=== PATIENT | female | born 1940 | race Caucasian/White ===

== ENCOUNTER → 2017-12-27 | Outpatient (REF) | payer MEDICARE, MEDICAID ==
[~2017-12-27] MED LIST: ACE500 PO; ALE70 PO; AMLO2.5T74 PO; ARTO15 OP; ASPI-715 PO; BACDS PO; CALC-661 PO; CEP500 PO; CHL12L MM; CHOL100058 PO; CHOL200051 PO; CYCL1DRO6 OP; CYCOD OU; DIAZ2TAB74 PO; DIV250 PO; DIV500 PO; FURO-45 PO; LORA-799 PO; LORA10TA2 PO; MIRT-22 PO; MULT-820 PO; PHEN100 PO; POLY1DRO10 OP; RAN150 PO; SPI25 PO; SPIR25TA76 PO; TRAM100T8 PO; TUM500 PO; [UNRECOGNIZED DRUG - CODE] PO; [UNRECOGNIZED DRUG - CODE] PO
== END ==
LOC: ZZLCC 08:45
PROVIDERS: ATTEND Family Medicine
DX: G40.309 Generalized idiopathic epilepsy and epileptic syndromes, not intractable, without status epilepticus (principal)
CPT/HCPCS: 80164; 80185

== ENCOUNTER 2018-03-07 05:05 | Inpatient (IN) | payer MEDICARE, MEDICAID ==
[2018-03-07] VITALS (11 sets, daily range): BP systolic 73–142; BP diastolic 52–117
[~2018-03-07 05:05] MED LIST changes: -AMOX-559 PO; -BENZ1LOZ12 MM; -DIV500ER PO; -DOCU-416 PO; -HYDR-4309 PO; -MULT1CAP59 PO
--- NOTE | 2018-03-07 05:17 | ER Report ---
History and Physical Time Seen By MD: 05:16 Hx. of Stated Complaint: PATIENT STATES SHE STARTED HAVING PAIN ACROSS HER WHOLE ABDOMEN THAT STARTED YESTERDAY MORNING, NO BM SINCE TUESDAY. (GABRIELA BECERRIL MD) HPI/ROS CHIEF COMPLAINT: abdominal pain HISTORY OF PRESENT ILLNESS: This is a 77 year old female. She is a resident of [facility]. She has been having a couple of days of abdominal pain that she describes as being in the upper abdomen. Worsens with sitting or movement, and nothing makes it better. No bowel movement since Tuesday (4 days). No complaints of dysuria. No medications given for constipation. No fevers or chills. No shortness of breath. No chest pain. (GABRIELA BECERRIL MD) Allergies: Coded Allergies: bacitracin (Verified Allergy, Unknown, 03/07/18) polyethylene glycol 400 (Verified Allergy, Unknown, 03/07/18) propylene glycol (Verified Allergy, Unknown, 03/07/18) Home Meds Active Scripts Amoxicillin/Pot Clav 875-125 Mg Tab (AUGMENTIN 875-125 TABLET) 1 Each Tablet, 1 TAB PO Q12H, #16 TAB Prov:KENDY BUSH MD 03/08/18 Hydrocodone Bit/Acetaminophen (NORCO 5-325 TABLET) 1 Each Tablet, 1 EACH PO Q4H Y for PAIN, #20 TAB Prov:KENDY BUSH MD 03/08/18 Reported Medications Benzocaine/Menthol (CEPACOL SORE THROAT LOZENGE) 1 Each Lozenge, 1 EACH MM PRN Y for COUGH, LOZENGE 03/07/18 Divalproex Sodium (DIVALPROEX SODIUM ER) 500 Mg Tab.er.24h, 500 MG PO BID, TAB 03/07/18 Multivitamin (MULTIVITAMINS) 1 Each Capsule, 1 EACH PO DAILY, CAPSULE 03/07/18 Docusate Sodium (COLACE) 100 Mg Capsule, 100 MG PO DAILY, CAPSULE 03/07/18 Polyvinyl Alcohol/Povidone/Pf (REFRESH CLASSIC EYE DROPS) 1 Each Droperette, 2 DROP OP TID 10/29/14 Cholecalciferol (Vitamin D3) (VITAMIN D) 1,000 Unit Capsule, 2000 UNIT PO QAM, CAPSULE 10/29/14 Spironolactone (ALDACTONE) 25 Mg Tablet, 12.5 MG PO QAM 10/29/14 Phenytoin Sodium (DILANTIN (OR EQUIV)) 100 Mg Cap, 300 MG PO QHS 12/26/12 Calcium Carbonate (Tums) 500 Mg Chew, 1000 MG PO BIDBS, 0 Refills 12/26/10 Acetaminophen (Tylenol) 500 Mg Tab, 500 MG PO TID, 0 Refills 12/26/10 Chlorhexidine Gluconate (Chlorhexidine Gluconate) 473 Ml Mouthwash, 15 ML MM BIDPC, 0 Refills SWISH WITH 1 TBS (15ML) AND SPIT TWICE A DAY AFTER EATING. 12/26/10 Discontinued Reported Medications Tramadol Hcl (TRAMADOL HCL) 100 Mg Tab.er.24h, 50 MG PO QDAY Y for PAIN 10/29/14 Diazepam (DIAZEPAM) 2 Mg Tablet, 2 MG PO BID Y for MUSCLE SPASMS, TAB TAKE ONE TABLET BY MOUTH AT BEDTIME 10/29/14 Mirtazapine (MIRTAZAPINE) 15 Mg Tablet, 15 MG PO QHS 10/29/14 Cyclosporine (RESTASIS) 1 Each Droperette, 1 EACH OP BID 10/29/14 Amlodipine Besylate (AMLODIPINE BESYLATE) 2.5 Mg Tablet, 1 TAB PO QAM, #30 TAB TAKE ONE TABLET BY MOUTH EVERY DAY 10/29/14 Divalproex Sodium (DEPAKOTE DR(OR EQUIV)) 250 Mg Tab, 500 MG PO BID 12/26/12 Loratadine (Claritin) 10 Mg Tab.rapdis, 10 MG PO DAILY Y for ITCHING 12/26/12 Ranitidine Hcl (Zantac) 150 Mg Tab, 75 MG PO QAM, 0 Refills 12/26/10 Reviewed Nurses Notes: Yes (GABRIELA BECERRIL MD) Hx Smoking: No Smoking Status: Never Smoker Hx Substance Use Disorder: No Hx Alcohol Use: No (GABRIELA BECERRIL MD) Constitutional Vital Sign - Last 24 Hours 03/07/18 03/07/18 03/07/18 03/07/18 05:10 05:20 05:30 05:35 Temp 99.3 Pulse 96 89 90 Resp 24 B/P (MAP) 168/76 137/91 (106) Pulse Ox 90 87 89 O2 Delivery Room Air 03/07/18 03/07/18 03/07/18 05:50 06:05 06:20 Pulse 89 ??? 86 Pulse Ox 88 90 88 Intake and Output 03/07/18 03/07/18 03/08/18 15:00 23:00 07:00 Intake Total 1000 ml Output Total 40 ml Balance 960 ml (YURIY TAI MD) Physical Exam General Appearance: The patient is alert. No acute distress. Eyes: Pupils are equal, round. No pallor, injection or icterus. ENT: Mucous membranes are moist. Normal oral mucosa. Neck: Supple and non tender. Respiratory: Lungs are clear to auscultation. Cardiovascular: Regular rate and rhythm. Has a 3/6 systolic murmur. Gastrointestinal: Abdomen is soft, upper abdominal discomfort across the whole upper abdomen. Distended, mild. No rebound or guarding. Hypoactive bowel sounds. Neurological: Alert and oriented x3. Cerebal palsy. Skin: Warm and dry. No rashes. DIFFERENTIAL DIAGNOSIS: After history and physical exam, differential diagnosis was considered for abdominal pain including but not limited to constipation, bowel obstruction, gastroenteritis, colitis and urinary tract infection. ([facility]) Medical Decision Making Data Points Result Diagram: 03/07/18 0700 03/07/18 0700 Laboratory Hematology Test 03/07/18 07:00 03/07/18 07:06 Red Blood Count 4.54 M/uL (4.17-5.56) Mean Corpuscular Volume 92.7 fL (80.0-96.0) Mean Corpuscular Hemoglobin 32.6 pg (26.0-33.0) Mean Corpuscular Hemoglobin Concent 35.1 g/dL (32.0-36.0) Red Cell Distribution Width 14.7 % (11.5-14.5) Mean Platelet Volume 9.7 fL (7.2-11.1) Neutrophils (%) (Auto) 82.6 % (39.4-72.5) Lymphocytes (%) (Auto) 5.4 % (17.6-49.6) Monocytes (%) (Auto) 11.7 % (4.1-12.4) Eosinophils (%) (Auto) 0.0 % (0.4-6.7) Basophils (%) (Auto) 0.3 % (0.3-1.4) Nucleated RBC Relative Count (auto) 0.0 /100WBC Neutrophils # (Auto) 11.6 K/uL (2.0-7.4) Lymphocytes # (Auto) 0.8 K/uL (1.3-3.6) Monocytes # (Auto) 1.7 K/uL (0.3-1.0) Eosinophils # (Auto) 0.0 K/uL (0.0-0.5) Basophils # (Auto) 0.0 K/uL (0.0-0.1) Nucleated RBC Absolute Count (auto) 0.00 K/uL Sodium Level 136 mmol/L (137-145) Potassium Level 3.9 mmol/L (3.5-5.0) Chloride Level 102 mmol/L (98-107) Carbon Dioxide Level 26 mmol/L (22-31) Blood Urea Nitrogen 24 mg/dl (7-18) Creatinine 0.50 mg/dl (0.52-1.04) Glomerular Filtration Rate Calc > 60.0 Random Glucose 98 mg/dl (75-110) Calcium Level 8.6 mg/dl (8.4-10.2) Total Bilirubin 0.8 mg/dl (0.2-1.3) Aspartate Amino Transf (AST/SGOT) 27 U/L (0-35) Alanine Aminotransferase (ALT/SGPT) 24 U/L (0-56) Alkaline Phosphatase 72 U/L (0-126) Total Protein 6.7 gm/dl (6.3-8.2) Albumin 2.9 g/dl (3.5-5.0) Amylase Level 41 U/L (0-110) Lipase 55 U/L (23-300) Urine Color Yellow Urine Clarity Slightly-cloudy Urine pH 6.0 pH (4.8-9.5) Urine Specific [place] 1.024 Urine Protein Negative mg/dL (NEGATIVE) Urine Glucose (UA) Negative mg/dL (NEGATIVE) Urine Ketones Negative mg/dL (NEGATIVE) Urine Blood Negative (NEGATIVE) Urine Nitrite Negative (NEGATIVE) Urine Bilirubin Negative (NEGATIVE) Urine Urobilinogen Negative mg/dL (0.2-1.9) Urine Leukocyte Esterase Large (NEGATIVE) Urine RBC 8 /HPF (0-2/HPF) Urine WBC 343 /HPF (0-5/HPF) Urine Squamous Epithelial Cells Moderate /LPF (NONE-FEW) Urine Transitional Epithelial Cells Many /LPF (NONE-FEW) Urine Bacteria Negative /HPF (NONE-FEW) Urine Mucus None /HPF (NONE-FEW) Chemistry Test 03/07/18 07:00 03/07/18 07:06 White Blood Count 14.1 k/uL (4.5-11.0) Red Blood Count 4.54 M/uL (4.17-5.56) Hemoglobin 14.8 g/dL (12.0-16.0) Hematocrit 42.1 % (34.0-47.0) Mean Corpuscular Volume 92.7 fL (80.0-96.0) Mean Corpuscular Hemoglobin 32.6 pg (26.0-33.0) Mean Corpuscular Hemoglobin Concent 35.1 g/dL (32.0-36.0) Red Cell Distribution Width 14.7 % (11.5-14.5) Platelet Count 146 K/uL (150-450) Mean Platelet Volume 9.7 fL (7.2-11.1) Neutrophils (%) (Auto) 82.6 % (39.4-72.5) Lymphocytes (%) (Auto) 5.4 % (17.6-49.6) Monocytes (%) (Auto) 11.7 % (4.1-12.4) Eosinophils (%) (Auto) 0.0 % (0.4-6.7) Basophils (%) (Auto) 0.3 % (0.3-1.4) Nucleated RBC Relative Count (auto) 0.0 /100WBC Neutrophils # (Auto) 11.6 K/uL (2.0-7.4) Lymphocytes # (Auto) 0.8 K/uL (1.3-3.6) Monocytes # (Auto) 1.7 K/uL (0.3-1.0) Eosinophils # (Auto) 0.0 K/uL (0.0-0.5) Basophils # (Auto) 0.0 K/uL (0.0-0.1) Nucleated RBC Absolute Count (auto) 0.00 K/uL Glomerular Filtration Rate Calc > 60.0 Calcium Level 8.6 mg/dl (8.4-10.2) Total Bilirubin 0.8 mg/dl (0.2-1.3) Aspartate Amino Transf (AST/SGOT) 27 U/L (0-35) Alanine Aminotransferase (ALT/SGPT) 24 U/L (0-56) Alkaline Phosphatase 72 U/L (0-126) Total Protein 6.7 gm/dl (6.3-8.2) Albumin 2.9 g/dl (3.5-5.0) Amylase Level 41 U/L (0-110) Lipase 55 U/L (23-300) Urine Color Yellow Urine Clarity Slightly-cloudy Urine pH 6.0 pH (4.8-9.5) Urine Specific [place] 1.024 Urine Protein Negative mg/dL (NEGATIVE) Urine Glucose (UA) Negative mg/dL (NEGATIVE) Urine Ketones Negative mg/dL (NEGATIVE) Urine Blood Negative (NEGATIVE) Urine Nitrite Negative (NEGATIVE) Urine Bilirubin Negative (NEGATIVE) Urine Urobilinogen Negative mg/dL (0.2-1.9) Urine Leukocyte Esterase Large (NEGATIVE) Urine RBC 8 /HPF (0-2/HPF) Urine WBC 343 /HPF (0-5/HPF) Urine Squamous Epithelial Cells Moderate /LPF (NONE-FEW) Urine Transitional Epithelial Cells Many /LPF (NONE-FEW) Urine Bacteria Negative /HPF (NONE-FEW) Urine Mucus None /HPF (NONE-FEW) Urinalysis Test 03/07/18 07:06 Urine Color Yellow Urine Clarity Slightly-cloudy Urine pH 6.0 pH (4.8-9.5) Urine Specific [place] 1.024 Urine Protein Negative mg/dL (NEGATIVE) Urine Glucose (UA) Negative mg/dL (NEGATIVE) Urine Ketones Negative mg/dL (NEGATIVE) Urine Blood Negative (NEGATIVE) Urine Nitrite Negative (NEGATIVE) Urine Bilirubin Negative (NEGATIVE) Urine Urobilinogen Negative mg/dL (0.2-1.9) Urine Leukocyte Esterase Large (NEGATIVE) Urine RBC 8 /HPF (0-2/HPF) Urine WBC 343 /HPF (0-5/HPF) Urine Squamous Epithelial Cells Moderate /LPF (NONE-FEW) Urine Transitional Epithelial Cells Many /LPF (NONE-FEW) Urine Bacteria Negative /HPF (NONE-FEW) Urine Mucus None /HPF (NONE-FEW) (YURIY TAI MD) EKG/Imaging Imaging FACILITY: [facility] [place] PATIENT NAME: Lyndsey Valverde : 1940 MR: [id number] V: [id number] EXAM DATE: ORDERING PHYSICIAN: YURIY TAI TECHNOLOGIST: Location: [facility] [place] Patient: Lyndsey Valverde : 1940 Visit/Account:[id number] Date of Sevice: 03/07/2018 Computed tomograpy abdomen and pelvis with IV contrast Indication: Abdominal pain. Comparison: None available. Technique: Transaxial computed tomography images were obtained through the abdomen and pelvis following the injection of nonionic iodinated intravenous contrast. Reformatted coronal and sagittal images were also obtained. One of the following dose optimization techniques was utilized in the performance of this exam: Automated exposure control; adjustment of the mA and/ or kV according to the patient's size; or use of an iterative reconstruction technique. Specific details can be referenced in the facility's radiology CT exam operational policy. Contrast: 75 ml of Isovue-370 IV contrast. Findings: Lower lung lozano: There is a intermediate to large hernia. This contains a large portion of the stomach as well as surrounding fat. There is associated atelectasis involving the adjacent lower lobes. Calcifications are seen within the lower lobes likely related to old granulomatous disease. Linear density seen within the left chest wall musculature may be related to postoperative change. Liver: Mild fatty liver. Biliary: Gallbladder is absent. There is mild extrahepatic biliary dilatation. The common duct tapers distally in the pancreas. This may be sequela of the prior cholecystectomy. Pancreas: Normal appearance. Spleen: Normal appearance. Adrenal glands: Small left adrenal gland nodule seen at the junction of the anterior lateral limbs measures 1.1 cm in size. This is indeterminant. Right adrenal gland is normal. Kidneys / retroperitoneum: Several too small to characterize low-attenuation lesions are seen involving the right kidney. Statistically, these represent small cysts. No stones or hydronephrosis. No evidence for obstructive uropathy. Bowel / peritoneum / mesenteries: The appendix is abnormally dilated within the right pelvis. It is thick walled and there is abnormal surrounding inflammatory change. Findings are consistent with acute appendicitis. A partially calcified appendicolith is seen at the base of the appendix. No evidence of extraluminal gas or abscess formation. There is some fluid seen along the right paracolic gutter. Scarring is suspected within the retroperitoneum along the paracolic gutter. Comparison with old studies and with history is recommended. There is diffuse colonic diverticulosis. No evidence of diverticulitis. No evidence of free intraperitoneal air. Lymph node assessment: No pathologic adenopathy identified. Pelvic structures: No free pelvic fluid. There is bladder wall thickening with mucosal enhancement. Underlying cystitis cannot be excluded. Correlate with urinalysis. Vessels: Scattered atherosclerotic calcifications seen throughout a nonaneurysmal abdominal aorta and branches. Musculoskeletal / Body wall: Multilevel degenerative changes involve the spine. Compression deformities seen at L2 and L1 with a mild kyphosis at this level. These are age indeterminate and may be chronic. Diffuse osteopenia is suggested. There is fairly extensive muscle atrophy involving the pelvic musculature. Correlate clinically. Postoperative changes involve the low lumbar spine. IMPRESSION: 1. CT findings compatible with acute appendicitis with surrounding inflammatory stranding with a small amount of fluid tracking into the right paracolic gutter. No evidence of extraluminal gas or abscess formation. In a patient this age, a cecal mass must be included in the differential for acute appendicitis. 2. Colonic diverticulosis. No evidence of diverticulitis. 3. Intermediate to large hiatal hernia with associated atelectasis involving the lower lobes. 4. Bladder wall hickening with mucosal enhancement suspicious for an underlying cystitis. Correlation necessary with urinalysis. 5. Muscle atrophy of the pelvic musculature.6. Indeterminate 1.1 cm left adrenal gland nodule. Are there any old studies for comparison? Results were discussed with YURIY TAI at 03/07/2018 8:40 AM. Report Dictated By: Soren Lopez at 03/07/2018 8:21 AM Report E-Signed By: Soren Lopez at 03/07/2018 8:41 AM WSN:[id number] (YURIY TAI MD) ED Course/Re-evaluation Clinical Indication for ER IV: Hydration, IV Access ([facility]) ED Course 03/07/2018 8:56:34 am I spoke with Ladonna who is the patient's sister and power of assistant county attorney. She is aware that the patient has appendicitis. Agrees with current disposition to admit to the hospital and have surgery. Decision to Disposition Date: Mar 07, 2018 Decision to Disposition Time: 08:54 (YURIY TAI MD) Depart Departure Latest Vital Signs Vital Signs Date Time Temp Pulse Resp B/P (MAP) Pulse Ox O2 Delivery O2 Flow Rate FiO2 03/07/18 06:20 86 88 03/07/18 05:30 137/91 (106) 03/07/18 05:10 99.3 24 Room Air (YURIY TAI MD) Impression: Primary Impression: Acute appendicitis Additional Impression: Urinary tract infection Condition: Improved Disposition: Admitted from ER (to Dr Bush) Referrals: DYANA RUSHING MD (PCP) New Scripts Amoxicillin/Pot Clav 875-125 Mg Tab (AUGMENTIN 875-125 TABLET) 1 Each Tablet 1 TAB PO Q12H, #16 TAB Prov: KENDY BUSH MD 03/08/18 Hydrocodone Bit/Acetaminophen (NORCO 5-325 TABLET) 1 Each Tablet 1 EACH PO Q4H Y for PAIN, #20 TAB Prov: KENDY BUSH MD 03/08/18 Problem Qualifiers Primary Impression: Acute appendicitis Acute appendicitis type: with localized peritonitis Qualified Codes: K35.3 - Acute appendicitis with localized peritonitis Additional Impression: Urinary tract infection Urinary tract infection type: acute cystitis Hematuria presence: without hematuria Qualified Codes: N30.00 - Acute cystitis without hematuria GABRIELA BECERRIL MD Mar 07, 2018 05:17 YURIY TAI MD Mar 07, 2018 08:57
[2018-03-07] MEDS ORDERED: NS(*) 0.9% 1000 ML BAG 1,000 ML IV ONE (05:25)
[2018-03-07] MEDS ORDERED: ONDANSETRON 4 MG/2 ML VIAL IVP ONE (05:25)
--- NOTE | 2018-03-07 06:46 | RADIOLOGY IMAGING REPORT ---
FACILITY: [facility] PATIENT NAME: Lyndsey Valverde : 1940 MR: [id number] V: [id number] EXAM DATE: ORDERING PHYSICIAN: GABRIELA BECERRIL TECHNOLOGIST: Location: [facility] [place] Patient: Lyndsey Valverde : 1940 Visit/Account:[id number] Date of Sevice: 03/07/2018 ACUTE ABDOMEN SERIES 3 VIEW HISTORY: Lower abdominal pain. COMPARISON: Chest x-ray 10/29/2014 and 12/26/2012. No previous abdominal imaging. TECHNIQUE: AP semiupright view of the chest and AP supine and AP semi-upright views of the abdomen. Chest: There is mild bibasilar atelectasis. There is a large hiatal hernia, unchanged. No pneumothora x or pleural effusion. The cardiac and mediastinal silhouettes are within normal limits. There is deg enerative change of the glenohumeral joints, and there is spurring of the bilateral humeral heads. Abdomen: The distribution of bowel gas is normal, with bowel in all four quadrants as well as central ly. No free air. No dilated loops of bowel. There is moderate to severe degenerative change of the sp ine. There are concave deformities of the superior and inferior endplates of L1, of the superior endp late of T12, and of the superior endplate of L2. There are pelvic phleboliths. IMPRESSION: 1. Mild bibasilar atelectasis. 2. Unremarkable bowel gas pattern without obstruction. 3. Large hiatal hernia. Report Dictated By: Sruthi Wolfe at 03/07/2018 6:38 AM Report E-Signed By: Sruthi Wolfe at 03/07/2018 6:42 AM WSN:[id number]
[2018-03-07 07:16] LABS: PLATELET COUNT, AUTOMATED 146 K/uL (150-450)
[2018-03-07] MEDS ORDERED: IOPAMIDOL 76% 75 ML INFUS BTL 0 ML ONE (07:50)
[2018-03-07] MEDS ORDERED: IOPAMIDOL 76% 75 ML INFUS BTL 75 ML ONE (07:55)
[2018-03-07] MEDS ORDERED: cefOXitin/DEX(*) 2GM/50ML PREM 50 ML IVPB ONE (08:45)
--- NOTE | 2018-03-07 08:45 | RADIOLOGY IMAGING REPORT ---
FACILITY: [facility] PATIENT NAME: Lyndsey Valverde : 1940 MR: [id number] V: [id number] EXAM DATE: ORDERING PHYSICIAN: YURIY TAI TECHNOLOGIST: Location: [facility] Patient: Lyndsey Valverde : 1940 Visit/Account:[id number] Date of Sevice: 03/07/2018 Computed tomograpy abdomen and pelvis with IV contrast Indication: Abdominal pain. Comparison: None available. Technique: Transaxial computed tomography images were obtained through the abdomen and pelvis follo wing the injection of nonionic iodinated intravenous contrast. Reformatted coronal and sagittal image s were also obtained. One of the following dose optimization techniques was utilized in the performance of this exam: Autom ated exposure control; adjustment of the mA and/or kV according to the patient's size; or use of an i terative reconstruction technique. Specific details can be referenced in the facility's radiology C T exam operational policy. Contrast: 75 ml of Isovue-370 IV contrast. Findings: Lower lung lozano: There is a intermediate to large hernia. This contains a large portion of the stom ach as well as surrounding fat. There is associated atelectasis involving the adjacent lower lobes. C alcifications are seen within the lower lobes likely related to old granulomatous disease. Linear den sity seen within the left chest wall musculature may be related to postoperative change. Liver: Mild fatty liver. Biliary: Gallbladder is absent. There is mild extrahepatic biliary dilatation. The common duct tapers distally in the pancreas. This may be sequela of the prior cholecystectomy. Pancreas: Normal appearance. Spleen: Normal appearance. Adrenal glands: Small left adrenal gland nodule seen at the junction of the anterior lateral limbs me asures 1.1 cm in size. This is indeterminant. Right adrenal gland is normal. Kidneys / retroperitoneum: Several too small to characterize low-attenuation lesions are seen involvi ng the right kidney. Statistically, these represent small cysts. No stones or hydronephrosis. No evid ence for obstructive uropathy. Bowel / peritoneum / mesenteries: The appendix is abnormally dilated within the right pelvis. It is t hick walled and there is abnormal surrounding inflammatory change. Findings are consistent with acute appendicitis. A partially calcified appendicolith is seen at the base of the appendix. No evidence o f extraluminal gas or abscess formation. There is some fluid seen along the right paracolic gutter. S carring is suspected within the retroperitoneum along the paracolic gutter. Comparison with old studi es and with history is recommended. There is diffuse colonic diverticulosis. No evidence of diverticulitis. No evidence of free intraperi toneal air. Lymph node assessment: No pathologic adenopathy identified. Pelvic structures: No free pelvic fluid. There is bladder wall thickening with mucosal enhancement . Underlying cystitis cannot be excluded. Correlate with urinalysis. Vessels: Scattered atherosclerotic calcifications seen throughout a nonaneurysmal abdominal aorta and branches. Musculoskeletal / Body wall: Multilevel degenerative changes involve the spine. Compression deformiti es seen at L2 and L1 with a mild kyphosis at this level. These are age indeterminate and may be chron ic. Diffuse osteopenia is suggested. There is fairly extensive muscle atrophy involving the pelvic mu sculature. Correlate clinically. Postoperative changes involve the low lumbar spine. IMPRESSION: 1. CT findings compatible with acute appendicitis with surrounding inflammatory stranding with a smal l amount of fluid tracking into the right paracolic gutter. No evidence of extraluminal gas or absces s formation. In a patient this age, a cecal mass must be included in the differential for acute appen dicitis. 2. Colonic diverticulosis. No evidence of diverticulitis. 3. Intermediate to large hiatal hernia with associated atelectasis involving the lower lobes. 4. Bladder wall hickening with mucosal enhancement suspicious for an underlying cystitis. Correlatio n necessary with urinalysis. 5. Muscle atrophy of the pelvic musculature.6. Indeterminate 1.1 cm left adrenal gland nodule. Are ere any old studies for comparison? Results were discussed with YURIY TAI at 03/07/2018 8:40 AM. Report Dictated By: Soren Lopez at 03/07/2018 8:21 AM Report E-Signed By: Soren Lopez at 03/07/2018 8:41 AM WSN:[id number]
[2018-03-07] MEDS ORDERED: cefOXitin/DEX(*) 1GM/50ML PREM 50 ML IVPB ONE ×2 (09:05)
[2018-03-07] MEDS ORDERED: NORMOSOL R SOLN(*) 1000 ML BAG 1,000 ML IV PRN (10:34)
--- NOTE | 2018-03-07 10:34 | General Surgery 1 H&P ---
History of Present Illness Chief Complaint abdominal pain History of Present Illness 77 yo female with a history of cerebral palsy and seizures presents with a day history of abdominal pain. she complains of midabdominal pain that is steady and increasing. it is worse with movement. nausea. no change in bms no urinary complaints. seen in ed [facility] at 14 and ua suggests a uti. ct suggests appendicitis History Other Past Surgeries: midline scar uncertain what that operation was Home Meds Reported Medications Tramadol Hcl (TRAMADOL HCL) 100 Mg Tab.er.24h, 50 MG PO QDAY Y for PAIN 10/29/14 Diazepam (DIAZEPAM) 2 Mg Tablet, 2 MG PO BID Y for MUSCLE SPASMS, TAB TAKE ONE TABLET BY MOUTH AT BEDTIME 10/29/14 Mirtazapine (MIRTAZAPINE) 15 Mg Tablet, 15 MG PO QHS 10/29/14 Polyvinyl Alcohol/Povidone/Pf (REFRESH CLASSIC EYE DROPS) 1 Each Droperette, 2 DROP OP TID 10/29/14 Cyclosporine (RESTASIS) 1 Each Droperette, 1 EACH OP BID 10/29/14 Cholecalciferol (Vitamin D3) (VITAMIN D) 1,000 Unit Capsule, 1000 UNIT PO QAM, CAPSULE 10/29/14 Spironolactone (ALDACTONE) 25 Mg Tablet, 25 MG PO QAM 10/29/14 Amlodipine Besylate (AMLODIPINE BESYLATE) 2.5 Mg Tablet, 1 TAB PO QAM, #30 TAB TAKE ONE TABLET BY MOUTH EVERY DAY 10/29/14 Phenytoin Sodium (DILANTIN (OR EQUIV)) 100 Mg Cap, 300 MG PO QHS 12/26/12 Divalproex Sodium (DEPAKOTE DR(OR EQUIV)) 250 Mg Tab, 500 MG PO BID 12/26/12 Loratadine (Claritin) 10 Mg Tab.rapdis, 10 MG PO DAILY Y for ITCHING 12/26/12 Calcium Carbonate (Tums) 500 Mg Chew, 1000 MG PO BIDBS, 0 Refills 12/26/10 Acetaminophen (Tylenol) 500 Mg Tab, 500 MG PO TID, 0 Refills 12/26/10 Ranitidine Hcl (Zantac) 150 Mg Tab, 75 MG PO QAM, 0 Refills 12/26/10 Chlorhexidine Gluconate (Chlorhexidine Gluconate) 473 Ml Mouthwash, 95869 ML MM BIDPC, 0 Refills SWISH WITH 1 TBS (15ML) AND SPIT TWICE A DAY AFTER EATING. 12/26/10 Allergies: Coded Allergies: bacitracin (Verified Allergy, Unknown, 03/07/18) polyethylene glycol 400 (Verified Allergy, Unknown, 03/07/18) propylene glycol (Verified Allergy, Unknown, 03/07/18) Review of Systems Other ROS Findings: cerebral palsy and seizure Exam Vital Signs Date Time Temp Pulse Resp B/P (MAP) Pulse Ox O2 Delivery O2 Flow Rate FiO2 03/07/18 09:14 98.3 73 20 142/69 (93) 91 Nasal Cannula 2.0 General Appearance: Alert, Awake GI: Other (teender with guarding in the right lower quadrant.) Medical Decision Making Data Points Result Diagram: 03/07/18 0700 03/07/18 0700 Assessment and Plan Problems: (1) Acute appendicitis Status: Acute Assessment & Plan: laparoscopic appendectomy Copies to: KENDY CASE MD Venous Thromboembolism Antithrombotics Is Pt On Any Antithrombotics?: No Problem Qualifiers (1) Acute appendicitis: Acute appendicitis type: with localized peritonitis Qualified Codes: K35.3 - Acute appendicitis with localized peritonitis KENDY CASE MD Mar 07, 2018 10:34
[2018-03-07] MEDS ORDERED: ONDANSETRON 4 MG/2 ML VIAL IVP PRN (10:35)
[2018-03-07] MEDS ORDERED: MORPHINE 1 MG/ML 30 ML PCA IV PRN (10:35)
[2018-03-07] MEDS ORDERED: MULT1CAP59 PO (11:43)
[2018-03-07] MEDS ORDERED: DIV500ER PO (11:43)
[2018-03-07] MEDS ORDERED: BENZ1LOZ12 MM (11:43)
[2018-03-07] MEDS ORDERED: DOCU-416 PO (11:43)
[2018-03-07] MEDS: PIPERACILLIN/TAZO*3.375GM VIAL 3.375 GM in NS(*) 0.9% 100 ML ADDVANT BAG 100 ML IVPB SCH ×2 (12:14→18:31)
[2018-03-07] MEDS ORDERED: NS(*) 0.9% 1000 ML BAG 1,000 ML ONE (12:15)
[2018-03-07] MEDS ORDERED: NORMOSOL R SOLN(*) 1000 ML BAG 1,000 ML IV ONE (13:05)
[2018-03-07] MEDS ORDERED: FAMOTIDINE(*) 20MG/50ML PREMIX 50 ML IVPB ONE ×2 (13:05)
[2018-03-07] MEDS ORDERED: fentaNYL CITR 250 MCG/5 ML AMP ONE (13:25)
[2018-03-07] MEDS ORDERED: LIDOCAINE 2% IV 100 MG/5ML SYR ONE (13:26)
[2018-03-07] MEDS ORDERED: PROPOFOL EMUL(*) 10MG/ML 20 ML 20 ML ONE (13:28)
[2018-03-07] MEDS ORDERED: LIDOCAINE/SOD BICARB 8.4% SYR ID ONE (13:55)
[2018-03-07] MEDS ORDERED: ONDANSETRON 4 MG/2 ML VIAL ONE (14:53)
[2018-03-07] MEDS ORDERED: DEXAMETHASONE SOD 4 MG/ML VIAL ONE (14:53)
[2018-03-07] MEDS ORDERED: ROPIVACAINE 0.2% 20 ML VIAL ONE (14:56)
[2018-03-07] MEDS ORDERED: ROCURONIUM BROM 10 MG/ML 5 ML ONE (15:30)
[2018-03-07] MEDS ORDERED: SUGAMMADEX SOD 200 MG/2 ML SDV ONE (15:30)
--- NOTE | 2018-03-07 15:38 | Post Operative Progress Note ---
Post Operative Progress Note Date: Mar 07, 2018 Time: 16:46 Surgeon: melvin Anesthesia: dr price Pre-Op Diagnosis: appendicitis Post-Op Diagnosis: gangrenous appendicitis Procedure(s): lap appendectomy KENDY CASE MD Mar 07, 2018 15:38
[2018-03-07] MEDS ORDERED: BENZOCAINE/MENTHOL 1 EACH LOZG MT PRN (16:50)
[2018-03-07] MEDS ORDERED: ACETAMINOPHEN 500 MG TAB PO SCH (16:50)
[2018-03-07] MEDS ORDERED: fentaNYL CITR 100 MCG/2 ML AMP ONE (17:17)
--- NOTE | 2018-03-07 17:28 | OPERATIVE REPORT 1 ---
EVENT DATE: March 07, 2018 SURGEON: Timo Bush MD ANESTHESIOLOGIST: Cedric Urbina MD ANESTHESIA: General. PREOPERATIVE DIAGNOSIS Acute appendicitis. POSTOPERATIVE DIAGNOSIS Acute gangrenous appendicitis with perforation. PROCEDURE PERFORMED Laparoscopic appendectomy. DESCRIPTION OF PROCEDURE The patient was placed in the supine position, given general anesthetic. Her abdomen was prepped and draped in a sterile fashion. We made an incision just above the umbilicus after anesthetizing the skin with 0.2% ropivacaine, inserted a Veress needle, inflated the abdomen with CO2. We then placed a 5 mm port under direct vision. We placed a 5 mm in the left lower quadrant and a 10 mm in the suprapubic region under direct vision. We then put the scope in the suprapubic site, went back and looked at the port site, we had gone through a little bit of omentum from the omental adhesion that was up to the previous surgery, and this omental adhesion was taken down with the Harmonic scalpel to free our port site up. We then placed the patient in Trendelenburg, rotated to the left. We went to the right lower quadrant and identified an acute gangrenous appendix. The antimesenteric wall was necrotic in two areas. As we dissected it free, the purulent material oozed out of the appendix. This was suctioned. We divided the mesoappendix with the Harmonic scalpel from the appendiceal-cecal junction to the tip. We then placed 0 chromic Endoloop at the appendiceal-cecal junction, two 0 PDS Endoloops distal to this, cut between the two PDS Endoloops, placed it in an Endo Pouch, removed it from the field. We suctioned, irrigated, and inspected for bleeding. We had excellent hemostasis. However, because of the blunt dissection, we decided to put some Shawn powder into position, which is what we did. At this point, the ports were removed under direct vision. No bleeding was noted. Skin was closed with interrupted 4-0 Maxon. Steri-Strips and Airstrip were placed. Patient tolerated the procedure well. No apparent complication. MARINO
[2018-03-07] MEDS: CALCIUM CARBONATE 500 MG CHEW PO SCH (18:32)
[2018-03-07] MEDS: PHENYTOIN ER 100 MG CAPER PO SCH (20:28)
[2018-03-07] MEDS: DIVALPROEX SOD ER 500 MG TABSR PO SCH (20:28)
[2018-03-07] MEDS: CHLORHEXIDINE 0.12% 18 MG/15ML MM SCH (20:29)
[2018-03-08 00:11] VITALS: BP 118/55
[2018-03-08] MEDS: PIPERACILLIN/TAZO*3.375GM VIAL 3.375 GM in NS(*) 0.9% 100 ML ADDVANT BAG 100 ML IVPB SCH ×5 (00:21→23:44)
[2018-03-08 03:03] VITALS: BP 114/54
[2018-03-08 07:34] VITALS: BP 98/52
--- NOTE | 2018-03-08 07:46 | General Surgery Progress Note ---
Subjective Progress Notes Subjective no complaints, tolerating po diet Physical Exam Vital Signs Date Time Temp Pulse Resp B/P (MAP) Pulse Ox O2 Delivery O2 Flow Rate FiO2 03/08/18 07:40 12 95 03/08/18 07:34 98.6 64 98/52 (67) Nasal Cannula 3.0 General Appearance: Alert, Awake, No Acute Distress GI: Soft and Non-Tender Result Diagram: 03/07/18 0700 03/07/18 0700 Assessment and Plan Problems: (1) Acute appendicitis Status: Acute Assessment & Plan: laparoscopic appendectomy 03/08/18 doing well, try po analgesia , continue antibiotic Exam Sepsis Risk: No Definite Risk Problem Qualifiers (1) Acute appendicitis: Acute appendicitis type: with localized peritonitis Qualified Codes: K35.3 - Acute appendicitis with localized peritonitis KENDY CASE MD Mar 08, 2018 07:46
[2018-03-08] MEDS: CALCIUM CARBONATE 500 MG CHEW PO SCH ×2 (08:03→17:28)
[2018-03-08] MEDS ORDERED: PANTOPRAZOLE SOD 40 MG IV VIAL IVP SCH (09:00)
[2018-03-08] MEDS: DIVALPROEX SOD ER 500 MG TABSR PO SCH ×2 (09:43→21:49)
[2018-03-08] MEDS: DOCUSATE SODIUM 100 MG CAP PO SCH (09:43)
[2018-03-08] MEDS: PANTOPRAZOLE SOD 40 MG TABEC PO SCH (09:43)
[2018-03-08] MEDS: SPIRONOLACTONE 25 MG TAB PO SCH (09:49)
[2018-03-08] MEDS: CHLORHEXIDINE 0.12% 18 MG/15ML MM SCH ×2 (10:01→17:40)
[2018-03-08 10:56] VITALS: BP 102/68
[2018-03-08] MEDS ORDERED: NS(*) 0.9% 250 ML BAG 250 ML IV PRN (11:20)
--- NOTE | 2018-03-08 15:01 | General Surgery Progress Note ---
Subjective Progress Notes Subjective no complaints, tolerating diet Physical Exam Vital Signs Date Time Temp Pulse Resp B/P (MAP) Pulse Ox O2 Delivery O2 Flow Rate FiO2 03/08/18 14:39 Nasal Cannula 03/08/18 10:56 97.7 64 16 102/68 (79) 95 1.0 Intake and Output 03/09/18 07:00 Intake Total 580 ml Balance 580 ml Intake Oral 480 ml Other 100 ml GI: Soft and Non-Tender Result Diagram: 03/07/18 0700 03/07/18 0700 Assessment and Plan Problems: (1) Acute appendicitis Status: Acute Assessment & Plan: laparoscopic appendectomy 03/08/18 doing well, try po analgesia , continue antibiotic 03/08/18 doing well home today Exam Sepsis Risk: No Definite Risk Problem Qualifiers (1) Acute appendicitis: Acute appendicitis type: with localized peritonitis Qualified Codes: K35.3 - Acute appendicitis with localized peritonitis KENDY CASE MD Mar 08, 2018 15:01
[2018-03-08] MEDS ORDERED: AMOX-559 PO (15:03)
[2018-03-08] MEDS ORDERED: HYDR-4309 PO (15:03)
--- NOTE | 2018-03-08 15:04 | Short(Outpt) Discharge Summary ---
Discharge Summary Reason for Hosp/Final Diag: (1) Acute appendicitis Status: Acute Hospital Course & Plan: laparoscopic appendectomy 03/08/18 doing well, try po analgesia , continue antibiotic 03/08/18 doing well home today Departure Discharge to: [facility] Discharge Instructions Home Meds Active Scripts Amoxicillin/Pot Clav 875-125 Mg Tab (AUGMENTIN 875-125 TABLET) 1 Each Tablet, 1 TAB PO Q12H, #16 TAB Prov:KENDY CASE MD 03/08/18 Hydrocodone Bit/Acetaminophen (NORCO 5-325 TABLET) 1 Each Tablet, 1 EACH PO Q4H Y for PAIN, #20 TAB Prov:KENDY CASE MD 03/08/18 Reported Medications Benzocaine/Menthol (CEPACOL SORE THROAT LOZENGE) 1 Each Lozenge, 1 EACH MM PRN Y for COUGH, LOZENGE 03/07/18 Divalproex Sodium (DIVALPROEX SODIUM ER) 500 Mg Tab.er.24h, 500 MG PO BID, TAB 03/07/18 Multivitamin (MULTIVITAMINS) 1 Each Capsule, 1 EACH PO DAILY, CAPSULE 03/07/18 Docusate Sodium (COLACE) 100 Mg Capsule, 100 MG PO DAILY, CAPSULE 03/07/18 Polyvinyl Alcohol/Povidone/Pf (REFRESH CLASSIC EYE DROPS) 1 Each Droperette, 2 DROP OP TID 10/29/14 Cholecalciferol (Vitamin D3) (VITAMIN D) 1,000 Unit Capsule, 2000 UNIT PO QAM, CAPSULE 10/29/14 Spironolactone (ALDACTONE) 25 Mg Tablet, 12.5 MG PO QAM 10/29/14 Phenytoin Sodium (DILANTIN (OR EQUIV)) 100 Mg Cap, 300 MG PO QHS 12/26/12 Calcium Carbonate (Tums) 500 Mg Chew, 1000 MG PO BIDBS, 0 Refills 12/26/10 Acetaminophen (Tylenol) 500 Mg Tab, 500 MG PO TID, 0 Refills 12/26/10 Chlorhexidine Gluconate (Chlorhexidine Gluconate) 473 Ml Mouthwash, 15 ML MM BIDPC, 0 Refills SWISH WITH 1 TBS (15ML) AND SPIT TWICE A DAY AFTER EATING. 12/26/10 Discontinued Reported Medications Tramadol Hcl (TRAMADOL HCL) 100 Mg Tab.er.24h, 50 MG PO QDAY Y for PAIN 10/29/14 Diazepam (DIAZEPAM) 2 Mg Tablet, 2 MG PO BID Y for MUSCLE SPASMS, TAB TAKE ONE TABLET BY MOUTH AT BEDTIME 10/29/14 Mirtazapine (MIRTAZAPINE) 15 Mg Tablet, 15 MG PO QHS 10/29/14 Cyclosporine (RESTASIS) 1 Each Droperette, 1 EACH OP BID 10/29/14 Amlodipine Besylate (AMLODIPINE BESYLATE) 2.5 Mg Tablet, 1 TAB PO QAM, #30 TAB TAKE ONE TABLET BY MOUTH EVERY DAY 10/29/14 Divalproex Sodium (DEPAKOTE DR(OR EQUIV)) 250 Mg Tab, 500 MG PO BID 12/26/12 Loratadine (Claritin) 10 Mg Tab.rapdis, 10 MG PO DAILY Y for ITCHING 12/26/12 Ranitidine Hcl (Zantac) 150 Mg Tab, 75 MG PO QAM, 0 Refills 12/26/10 Diet: Regular Activity: As Tolerated Special Instructions: remove bandage and shower tomorrow to follow up with dr gu in 10- 14 days Copies to: ARIE GU MD Problem Qualifiers (1) Acute appendicitis: Acute appendicitis type: with localized peritonitis Qualified Codes: K35.3 - Acute appendicitis with localized peritonitis KENDY CASE MD Mar 08, 2018 15:04
[2018-03-08] MEDS: APAP/HYDROCODONE 325/5 TAB PO PRN (17:27)
[2018-03-08 19:45] VITALS: BP 107/56
[2018-03-08] MEDS: PHENYTOIN ER 100 MG CAPER PO SCH (21:49)
[2018-03-08 23:40] VITALS: BP 131/62
[2018-03-09] MEDS: PIPERACILLIN/TAZO*3.375GM VIAL 3.375 GM in NS(*) 0.9% 100 ML ADDVANT BAG 100 ML IVPB SCH ×2 (05:19→12:16)
[2018-03-09 05:26] VITALS: BP 137/80
[2018-03-09] MEDS: APAP/HYDROCODONE 325/5 TAB PO PRN ×2 (05:43→13:51)
--- NOTE | 2018-03-09 07:05 | General Surgery Progress Note ---
Subjective Progress Notes Subjective no complaints, tolerated po diet Physical Exam Vital Signs Date Time Temp Pulse Resp B/P (MAP) Pulse Ox O2 Delivery O2 Flow Rate FiO2 03/09/18 05:26 98.4 64 14 137/80 (99) 92 Nasal Cannula 3.0 General Appearance: Alert, Awake GI: Soft and Non-Tender (incisions clear) Result Diagram: 03/07/18 0700 03/07/18 0700 Assessment and Plan Problems: (1) Acute appendicitis Status: Acute Assessment & Plan: laparoscopic appendectomy 03/08/18 doing well, try po analgesia , continue antibiotic 03/08/18 doing well home today 03/09/18 home today Exam Sepsis Risk: No Definite Risk Problem Qualifiers (1) Acute appendicitis: Acute appendicitis type: with localized peritonitis Qualified Codes: K35.3 - Acute appendicitis with localized peritonitis KENDY CASE MD Mar 09, 2018 07:05
[2018-03-09 09:08] VITALS: BP 141/68
[2018-03-09] MEDS: DIVALPROEX SOD ER 500 MG TABSR PO SCH (09:14)
[2018-03-09] MEDS: PANTOPRAZOLE SOD 40 MG TABEC PO SCH (09:14)
[2018-03-09] MEDS: CHLORHEXIDINE 0.12% 18 MG/15ML MM SCH (09:14)
[2018-03-09] MEDS: DOCUSATE SODIUM 100 MG CAP PO SCH (09:14)
[2018-03-09] MEDS: SPIRONOLACTONE 25 MG TAB PO SCH (09:14)
[2018-03-09] MEDS: CALCIUM CARBONATE 500 MG CHEW PO SCH (09:14)
[2018-03-09 11:23] VITALS: BP 125/62
== END 2018-03-09 14:01 | disposition home or self-care (01) | DRG 339 ==
LOC: ER 05:12 → INTOOBSV 08:54 → MED 08:54 → UNDOADMOB 08:54 → MED 08:54 → INTOOBSV 03-08 → OBSVTOIN 03-08 → UNDODISIN 03-09 14:01
PROVIDERS: ADMIT Surgery; ATTEND Surgery
PROC: 0DTJ4ZZ Resection of Appendix, Percutaneous Endoscopic Approach (ICD-10-PCS; principal; 2018-03-08)
DX: K35.3 Acute appendicitis with localized peritonitis (principal); N30.00 Acute cystitis without hematuria; G80.9 Cerebral palsy, unspecified; G40.909 Epilepsy, unspecified, not intractable, without status epilepticus; Z88.1 Allergy status to other antibiotic agents; Z88.8 Allergy status to other drugs, medicaments and biological substances
CPT/HCPCS: 36415; 74022; 74177; 81001; 82040; 82150; 82247; 82310; 82374; 82435; 82565; 82947; 83690; 84075; 84132; 84155; 84295; 84450; 84460; 84520; 85025; 88304; A4353; G0378; J1100; J2001; J2270; J2405; J2543; J2704; J2795; J3010; J3490; J7030; J7050; Q9967

== ENCOUNTER → 2018-03-07 | Outpatient (CLI) | payer MEDICARE, MEDICAID ==
[~2018-03-07] MED LIST changes: +AMOX-559 PO; +BENZ1LOZ12 MM; +DIV500ER PO; +DOCU-416 PO; +HYDR-4309 PO; +MULT1CAP59 PO
== END ==
LOC: AMB 04:51
PROVIDERS: ATTEND Nurse Practitioner
DX: R10.84 Generalized abdominal pain (principal)
CPT/HCPCS: A0425; A0429

== ENCOUNTER → 2019-02-02 | Outpatient (REF) | payer MEDICARE, MEDICAID ==
[~2019-02-02] MED LIST changes: -AMLO2.5T74 PO; +AMLO2.5T78 PO; +AMOX-559 PO; +BENZ1LOZ12 MM; +DIV500ER PO; +DOCU-416 PO; +HYDR-653 PO; +MULT1CAP59 PO
== END ==
LOC: ZZLCC 11:36
PROVIDERS: ATTEND Family Medicine
DX: G40.309 Generalized idiopathic epilepsy and epileptic syndromes, not intractable, without status epilepticus (principal)
CPT/HCPCS: 80164; 80185

== ENCOUNTER 2019-05-09 02:14 | Observation (INO) | payer MEDICARE, MEDICAID ==
[2019-05-09] VITALS (14 sets, daily range): BP systolic 104–136; BP diastolic 29–80
[~2019-05-09] VITALS: Ht 160 cm; Wt 64.6 kg
[2019-05-09] MEDS: NORMOSOL R SOLN(*) 1000 ML BAG 1,000 ML IV PRN ×2 (10:31→15:27)
[2019-05-09] MEDS ORDERED: FAMOTIDINE 20 MG TAB PO ONE (11:00)
[2019-05-09] MEDS ORDERED: MIDAZOLAM 2 MG/2 ML VIAL IVP PRN (11:00)
[2019-05-09] MEDS ORDERED: LIDOCAINE/SOD BICARB 8.4% SYR ID ONE (11:00)
[2019-05-09] MEDS ORDERED: TETRACAINE 0.5% OP SOL 4ML BTL ONE (11:50)
[2019-05-09] MEDS ORDERED: LIDO/EPI 1% MPF 1:200,000 30ML ONE (11:51)
[2019-05-09] MEDS ORDERED: [UNRECOGNIZED DRUG - OTHER] IU (12:34)
[2019-05-09] MEDS ORDERED: MIDAZOLAM 2 MG/2 ML VIAL ONE (13:14)
[2019-05-09] MEDS ORDERED: GLYCOPYRROLATE 0.2MG/ML 1 ML INJ ONE ×2 (14:46→15:01)
[2019-05-09] MEDS: GLYCOPYRROLATE 0.2MG/ML 1 ML INJ IVP ONE ×2 (14:50→15:03)
[2019-05-09] MEDS: DLR(*) 1000 ML BAG 1,000 ML IV ONE ×2 (14:53→15:27)
--- NOTE | 2019-05-09 15:55 | OPERATIVE REPORT 1 ---
EVENT DATE: May 09, 2019 SURGEON: Yony Toledo MD ANESTHESIOLOGIST: Rashel Grey MD ANESTHESIA: MAC. PREOPERATIVE DIAGNOSES 1. 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 3. 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 4. Right upper lid ptosis (H02.411) with severe visual field block (H53.40). POSTOPERATIVE DIAGNOSES 1. 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 3. 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 4. Right upper lid ptosis (H02.411) with severe visual field block (H53.40). PROCEDURES PERFORMED 1. Left paralytic brow reconstruction (62856). 2. Bilateral upper lid reconstruction for secondary ptosis (46517-34). 3. Left lateral canthoplasty (99372). BLOOD LOSS Less than 10 mL. DESCRIPTION OF PROCEDURE The patient was taken to the operating room and IV started. Neuroleptic anesthesia was administered. Due to the patient's severe postural problems, the patient was operated in a severe right lateral head deviation sitting upright due to her severe cerebral palsy, contractures, as well as osteoporosis. The face was then prepped and draped in the usual sterile fashion. Tetracaine eye drops were used for corneal anesthesia and Celluvisc eye drops for corneal protection. Local anesthesia with Xylocaine 1% with epinephrine 1:100,000, 12 mL. Both the brow and upper lids were marked for surgery, and following administration of local anesthesia, a left brow ptosis reconstruction was performed, making a suprabrow incision and plication of the frontalis muscle to the periosteum. 5-0 nylon sutures were used strategically across the extent of the left brow which, due to its paralysis, had no function at all and was contributing to the ptosis. Then, bilateral upper lid reconstruction for ptosis was performed following the injection of both upper lids with approximately 3 mL of local anesthesia. The skin was resected with a Validus-IVC Duarte 15 blade and preseptal orbicularis muscle resected. Then using a technique with 5-0 Vicryl supratarsal fixations, both upper lids were reconstructed from lateral to medial canthus. On the left side due to the paralysis of the whole orbicularis and frontalis muscles due to the facial paralysis, a lateral canthoplasty was performed using multiple sutures of 5-0 nylon as well as 6-0 Vicryl. At the end of the procedure, the patient having tolerated it well, she was sent to Recovery and monitored for eyelid closure, which was normal at the end of the procedure. MARINO
[2019-05-09] MEDS ORDERED: DLR(*) 1000 ML BAG 1,000 ML IV PRN (17:35)
--- NOTE | 2019-05-09 18:09 | Hospitalist Progress Note ---
Subjective Progress Notes Subjective Patient seen post-op. Reviewed PMHx (cerebral palsy, seizure disorder) and medications. She had some delayed awakening following sedation for procedure as well as some hypotension. She denies any current complaints such as CP/SOB/nausea. Physical Exam Vital Signs Date Time Temp Pulse Resp B/P (MAP) Pulse Ox O2 Delivery O2 Flow Rate FiO2 05/09/19 17:31 95 Nasal Cannula 2.0 05/09/19 17:30 68 104/62 (76) 05/09/19 16:59 97.5 16 General Appearance: Alert, Awake Neuro: Other (chronic facial droop/weakness in multiple muscle groups) Cardiovascular: Regular Rate and Rhythm (with soft systolic murmur) Respiratory: Clear to Auscultation Assessment and Plan Problems: (1) Postoperative hypotension Status: Acute Assessment & Plan: Resolved. She appears to be doing well at this time. Will monitor BPs. (2) Seizure disorder Status: Chronic Assessment & Plan: Continue phenytoin, depakote. (3) Cerebral palsy Status: Chronic Assessment & Plan: Appears stable. She does currently reside at [facility]. Exam Sepsis Risk: No Definite Risk LINDA ALLEN MD May 09, 2019 18:09
[2019-05-09] MEDS: DIVALPROEX SOD ER 500 MG TABSR PO SCH (20:45)
[2019-05-09] MEDS ORDERED: PHENYTOIN ER 100 MG CAPER PO SCH (21:00)
[2019-05-10] VITALS: BP 106/51
[2019-05-10 04:00] VITALS: BP 108/57
[2019-05-10 07:09] VITALS: BP 121/54
[2019-05-10] MEDS ORDERED: CALCIUM CARBONATE 500 MG CHEW PO SCH (08:00)
[2019-05-10] MEDS: DIVALPROEX SOD ER 500 MG TABSR PO SCH (08:44)
[2019-05-10] MEDS ORDERED: CHOLECALCIFEROL 1000 UNIT TAB PO SCH (09:00)
[2019-05-10] MEDS ORDERED: DOCUSATE SODIUM 100 MG CAP PO SCH (09:00)
[2019-05-10] MEDS ORDERED: MULTIVITAMINS TAB PO SCH (09:00)
--- NOTE | 2019-05-10 09:08 | EKG ---
FACILITY: [facility] [place] PATIENT NAME: ARMAAN MUÑOZ : [id number] MR: [id number] V: [id number] EXAM DATE: ORDERING PHYSICIAN: SHIRIN SANTOS TECHNOLOGIST: DOUG Test Reason : POST OP Blood Pressure : / mmHG Vent. Rate : 076 BPM Atrial Rate : 076 BPM P-R Int : 204 ms QRS Dur : 084 ms QT Int : 388 ms P-R-T Axes : 020 004 018 degrees QTc Int : 436 ms Normal sinus rhythm with 1st degree AV block Low voltage QRS Cannot rule out Anterior infarct , age undetermined Diffuse, non-specific T flattening No previous ECGs available Confirmed by FIDEL SERRATO ([id number]) on 05/10/2019 7:06:16 PM Referred By: TOM Confirmed By:FIDEL SERRATO
[2019-05-10] MEDS ORDERED: ACETAMINOPHEN 325 MG TAB PO ONE (09:30)
--- NOTE | 2019-05-10 09:36 | Hospitalist Progress Note ---
Subjective Progress Notes Subjective No acute events overnight. She expresses interests in discharging back to [facility]. Patient Complains of: Neurological: No: Confusion, Weakness Cardiovascular: No: Chest Pain, Palpitations Respiratory: No: Congestion, Shortness of Breath Physical Exam Vital Signs Date Time Temp Pulse Resp B/P (MAP) Pulse Ox O2 Delivery O2 Flow Rate FiO2 05/10/19 07:09 98.6 74 16 121/54 (76) 91 Room Air 05/09/19 17:31 2.0 Intake and Output 05/10/19 01:04 Intake Total 1800 ml Balance 1800 ml IV Total 1800 ml # Voids 1 General Appearance: Alert, Awake, No Acute Distress Cardiovascular: Regular Rate and Rhythm Respiratory: No Respiratory Distress Psych: Alert & Oriented X3, Appropriate Mood & Affect Assessment and Plan Problems: (1) Postoperative hypotension Status: Acute Assessment & Plan: Resolved. She appears to be doing well at this time. Will continue to monitor. (2) Seizure disorder Status: Chronic Assessment & Plan: Continue chronic management with phenytoin, depakote. (3) Cerebral palsy Status: Chronic Assessment & Plan: Appears stable. She does currently reside at [facility]. Copies to: NORA URENA MD ; Exam Sepsis Risk: No Definite Risk KRISTIAN ANTONIO May 10, 2019 09:36
[2019-05-10 09:40] VITALS: Ht 160 cm; Wt 64.6 kg
--- NOTE | 2019-05-10 10:19 | Hospitalist Depart ---
Discharge Summary Reason for Hosp/Final Diag: (1) Postoperative hypotension Status: Acute Hospital Course & Plan: Resolved. She appears to be doing well at this time. She has remained normotensive through the night. (2) Seizure disorder Status: Chronic Hospital Course & Plan: Continue chronic management with phenytoin, depakote. (3) Cerebral palsy Status: Chronic Hospital Course & Plan: Appears stable. She does currently reside at [facility] and will return there on discharge. Departure Weight (Pounds): 142 Weight (Ounces): 6.0 Condition: Improved Discharge: Shelter Discharge Instructions Home Meds Reported Medications Benzocaine/Menthol (CEPACOL SORE THROAT LOZENGE) 1 Each Lozenge, 1 EACH MM PRN PRN for COUGH, LOZENGE 03/07/18 Divalproex Sodium (DIVALPROEX SODIUM ER) 500 Mg Tab.er.24h, 500 MG PO BID, TAB 03/07/18 Multivitamin (MULTIVITAMINS) 1 Each Capsule, 1 EACH PO DAILY, CAPSULE 03/07/18 Docusate Sodium (COLACE) 100 Mg Capsule, 100 MG PO DAILY, CAPSULE 03/07/18 Polyvinyl Alcohol/Povidone/Pf (REFRESH CLASSIC EYE DROPS) 1 Each Droperette, 2 DROP OP TID 10/29/14 Cholecalciferol (Vitamin D3) (VITAMIN D) 1,000 Unit Capsule, 2000 UNIT PO QAM, CAPSULE 10/29/14 Spironolactone (ALDACTONE) 25 Mg Tablet, 12.5 MG PO QAM 10/29/14 Phenytoin Sodium (DILANTIN (OR EQUIV)) 100 Mg Cap, 300 MG PO QHS 12/26/12 Calcium Carbonate (Tums) 500 Mg Chew, 1000 MG PO BIDBS, 0 Refills 12/26/10 Acetaminophen (Tylenol) 500 Mg Tab, 500 MG PO TID, 0 Refills 12/26/10 Chlorhexidine Gluconate (Chlorhexidine Gluconate) 473 Ml Mouthwash, 15 ML MM BIDPC, 0 Refills SWISH WITH 1 TBS (15ML) AND SPIT TWICE A DAY AFTER EATING. 12/26/10 Discontinued Scripts Amoxicillin/Pot Clav 875-125 Mg Tab (AUGMENTIN 875-125 TABLET) 1 Each Tablet, 1 TAB PO Q12H, #16 TAB Prov:KENDY CASE MD 03/08/18 Hydrocodone Bit/Acetaminophen (NORCO 5-325 TABLET) 1 Each Tablet, 1 EACH PO Q4H PRN for PAIN, #20 TAB Prov:KENDY CASE MD 03/08/18 Diet: Regular Activity: As Tolerated Special Instructions: Apply saline soaked eye pads bilterally to both eyes for 15 mins 4 times a day. For discomfort apply cold compress. Follow up with Provider as previously discussed Return to the ED for any surgical complications or other emergent concerns. Copies to: DYANA RUSHING MD; NORA URENA MD ; Venous Thromboembolism Antithrombotics Is Pt On Any Antithrombotics?: No KRISTIAN ANTONIO May 10, 2019 10:19
[2019-05-10 11:51] VITALS: BP 121/60
== END 2019-05-10 10:20 | disposition home or self-care (01) ==
LOC: OR 02:14 → MED 16:55
PROVIDERS: ADMIT Internal Medicine; ATTEND Internal Medicine
DX: G51.0 Bell's palsy (principal); L57.4 Cutis laxa senilis; H53.40 Unspecified visual field defects; H02.412 Mechanical ptosis of left eyelid; H02.411 Mechanical ptosis of right eyelid; G40.909 Epilepsy, unspecified, not intractable, without status epilepticus; F32.9 Major depressive disorder, single episode, unspecified; Z79.899 Other long term (current) drug therapy
CPT/HCPCS: 36416; 67900; 67950; 67974; 82948; A9270; G0378; J2250; J3490; J7325